=== PATIENT | female | born 1980 | race Caucasian/White ===

== ENCOUNTER 2019-08-29 13:21 | Emergency (ER) | payer OTHER, SELFPAY ==
[2019-08-29 13:28] VITALS: BP 120/80; PULSE 66; RESP 14; TEMP 36.7; O2SAT 98
--- NOTE | 2019-08-29 13:45 | ED.UPPEXIN ---
HPI - Extremity Injury (Upper) General Chief Complaint: Extremity Injury, Upper Stated Complaint: left wrist injury Time Seen by Provider: 08/29/19 13:39 Source: patient and RN notes reviewed Mode of arrival: ambulatory Limitations: no limitations History of Present Illness HPI narrative: Patient presents today complaining of a one-week history of left wrist pain. Denies any injury at time of onset. Last night, she was repositioning herself on her bed and rolled her wrist, causing increased pain. She now has radiating pain to the forearm. Reports some tingling in the fifth finger, but denies numbness. She currently rates her pain 8/10 and has been using ice and marijuana. She also took 1 dose of ibuprofen last night without relief. Pain increases with movement. MD complaint: injury to: left and wrist Related Data Allergies Allergy/AdvReac Type Severity Reaction Status Date / Time No Known Allergies Allergy Verified 08/29/19 13:40 Review of Systems Review of Systems: Narrative: CONSTITUTIONAL: Denies body aches, fever, chills, or sweats. EYES: Denies visual changes, redness, or discharge. ENT: Denies rhinorrhea, congestion, sore throat, or otalgia. CARDIOVASCULAR: Denies chest pain, palpitations, or edema. RESPIRATORY: Denies cough or dyspnea. GASTROINTESTINAL: Denies abdominal pain, nausea, vomiting, or diarrhea. GENITOURINARY: Denies dysuria or hematuria. SKIN: Denies rash, itching, or wounds. MUSCULOSKELETAL: Denies back pain, or myalgia. +left wrist pain NEUROLOGIC: Denies headache, numbness, tingling, or weakness. PSYCH: Denies depression or anxiety. [facility] Social History Social History (Updated 08/29/19 @ 15:07 by Kassandra Oates, [facility], ) Smoking status: Current some day smoker Tobacco type: cigarettes Alcohol intake: never Substance use: current Substance use type: marijuana Exam Narrative: Exam Narrative: GENERAL: Well-appearing, well-nourished, and in mild acute distress. HEAD: Normocephalic, atraumatic. EYES: EOMI. No redness or drainage. Conjunctivae normal. ENT: Mucous membranes pink and moist. NECK: Normal AROM. CHEST: No respiratory distress. EXTREMITIES: Tenderness to dorsum of left wrist. Scant edema dorsally. No ecchymosis or erythema noted. Distal sensation intact, capillary refill normal. Radial pulse normal. Patient has limited AROM due to pain. SKIN: Warm, dry, no rash. Capillary refill normal. Normal skin turgor. NEURO: No focal deficits. Alert and oriented x3. Gait steady. PSYCH: Normal affect. No signs of depression or anxiety. Course Vital Signs Vital signs: Vital Signs Temperature 98.0 F 08/29/19 13:28 Pulse Rate 66 08/29/19 13:28 Respiratory Rate 14 08/29/19 13:28 Blood Pressure 120/80 08/29/19 13:28 Pulse Oximetry 98 08/29/19 13:28 Temperature 98.0 F 08/29/19 13:28 Pulse Rate 66 08/29/19 13:28 Respiratory Rate 14 08/29/19 13:28 Blood Pressure 120/80 08/29/19 13:28 Pulse Oximetry 98 08/29/19 13:28 Reviewed MDM - Extremity Injury (Upper) Differential Diagnosis Differential diagnosis: Likely sprain and strain of wrist and other (Carpal tunnel, tendinitis) Critical Care Time Critical Care Time Critical Care Time: No Discharge Plan Discharge Clinical Impression: Left wrist sprain Qualifiers: Encounter type: initial encounter Qualified Code(s): S63.502A - Unspecified sprain of left wrist, initial encounter Patient Disposition: Home, Self-Care Condition: Stable Instructions: Wrist Sprain (ED) Additional Instructions: You have likely sprained your wrist. Please take the Medrol Dosepak as directed. Continue ibuprofen for pain and inflammation. Wear a Velcro wrist splint for stability at home. Follow-up with your doctor in 1 week if symptoms are not improving. Patient Language: Luxembourgish Prescriptions: New methylprednisolone [Medrol (Brown)] 4 mg tablets,dose pack See Rx Instructions .ROUTE .CO
== END 2019-08-29 13:53 | disposition home or self-care (01) ==
PROVIDERS: Emergency Provider Nurse Practitioner
DX: S63.502A Unspecified sprain of left wrist, initial encounter (principal); X50.9XXA Other and unspecified overexertion or strenuous movements or postures, initial encounter; J44.9 Chronic obstructive pulmonary disease, unspecified
CPT/HCPCS: 99213; G0463

== ENCOUNTER 2019-12-22 14:46 | Emergency (ER) | payer OTHER, SELFPAY ==
[2019-12-22 14:57] VITALS: BP 113/68; PULSE 77; RESP 16; TEMP 36.9; O2SAT 98
--- NOTE | 2019-12-22 15:23 | ED.GENADULT ---
HPI - General Adult General Chief complaint: Ear Stated complaint: dizzy/right ear pain and pressure Time Seen by Provider: 12/22/19 15:23 Source: patient and RN notes reviewed Mode of arrival: ambulatory Limitations: no limitations History of Present Illness HPI narrative: 39-year-old female presents with complaints of dizziness and nausea with head movement, right ear pressure, and ringing in ears that has been going on for the past 6 days. Symptoms increased over the past 48-72 hours. No treatment. Haritha says She went to [employer] 1-2 days prior to symptoms and then ringing in ears started awaken the next day with dizziness which increased daily. Exacerbating factors consist of changing position too fast and turning head from side to side too fast. Relieving factors is sitting still. Denies ear pain, ear itching, ear trauma, trauma to head, syncopal episodes, altered vision, altered speech, confusion, or seizure activity. Denies headache, numbness or tingling in extremities. Denies chest pain or dyspnea. Denies URI symptoms, fever, or chills. Tolerating p.o. intake well. LMP 2004 due to endometrial ablation. Remains active. The patient reports she have not been diagnosed with COVID-19. The patient reports she is not waiting for the results of a COVID-19 lab test. The patient reports she do not have fever, chills, weakness, or fatigue. The patient reports she do not have a new or worsening cough or shortness of breath. Denies chest pain. The patient reports she do not have any rhinorrhea, congestion, sore throat, nausea, vomiting, abdominal pain, and diarrhea. Denies recent traveling. Denies concerns for COVID-19. At this time, patient is not suspected of having COVID-19. Some parts of this dictation were generated by voice recognition software and may contain typographical and/or grammatical inaccuracies. Related Data Home Medications Medication Instructions Recorded Confirmed No Home Medications 12/22/19 12/22/19 Allergies Allergy/AdvReac Type Severity Reaction Status Date / Time No Known Allergies Allergy Verified 12/22/19 15:05 Review of Systems Review of Systems: Narrative: CONSTITUTIONAL: Denies fever, chills, sweats. EYES: Denies visual changes, redness, discharge. ENT: Denies rhinorrhea, congestion, sore throat, otalgia.Complains of ear pressure and tinnitus, CARDIOVASCULAR: Denies chest pain, palpitations, edema. RESPIRATORY: Denies dyspnea, wheezing, cough. GASTROINTESTINAL: Denies abdominal pain, nausea, vomiting, diarrhea. GENITOURINARY: Denies dysuria, hematuria, abnormal discharge. SKIN: Denies lesions, itching, drainage. MUSCULOSKELETAL: Denies acute back pain, joint pain, or myalgia. NEUROLOGIC: Denies numbness or focal weakness. Complains of dizziness. PSYCHIATRIC: Denies anxiety or depression. All systems reviewed & are unremarkable except as noted in HPI and below. [facility] Past Medical History Medical History (Updated 12/23/19 @ 00:00 by Na Sheth) Anxiety Asthma Bipolar disorder delivery delivered X3 COPD (chronic obstructive pulmonary disease) Depression Pituitary tumor Surgical History Surgical History (Updated 12/22/19 @ 15:40 by RUBY Quan) H/O section History of adenoidectomy History of cholecystectomy History of endometrial ablation History of removal of cyst removed from RT knee History of tonsillectomy History of tubal ligation Family History Family History (Updated 12/22/19 @ 15:41 by RUBY Quan) Unknown Adopted (not a blood relative) Social History Social History (Updated 12/22/19 @ 15:42 by RUBY Quan) Smoking status: Current some day smoker Tobacco type: cigarettes Second hand tobacco smoke exposure: No Alcohol intake: never Substance use: current Substance use type: marijuana Living arrangements: with family Occupation/Education: unemployed Gender identity (if ve
[2019-12-22] MEDS: ONDANSETRON HCL ODT 4 MG TABLET PO (15:37)
[2019-12-22] MEDS: MECLIZINE HCL 25 MG TABLET PO (15:38)
[2019-12-22 15:42] VITALS: BP 124/78
[2019-12-22 15:43] VITALS: BP 127/86; BP 148/78; PULSE 72; PULSE 81
== END 2019-12-22 15:53 | disposition home or self-care (01) ==
PROVIDERS: Emergency Provider Nurse Practitioner Family
DX: H81.11 Benign paroxysmal vertigo, right ear (principal); H92.01 Otalgia, right ear; F17.210 Nicotine dependence, cigarettes, uncomplicated; J44.9 Chronic obstructive pulmonary disease, unspecified
CPT/HCPCS: 99213; A9270; G0463

== ENCOUNTER 2019-12-28 12:08 | Emergency (ER) | payer OTHER, SELFPAY ==
--- NOTE | ~2019-12-28 | XR_ITS ---
EXAMINATION: XR cervical spine 4-5V DATE: 12/28/2019 13:03 INDICATION: Neck pain. TECHNIQUE: 5 views of cervical spine were obtained. COMPARISON: None. FINDINGS: There is 7 degrees dextrocurvature of cervical spine. Vertebral body heights and interverte bral disc heights are normal. The facet joints are unremarkable. No central canal stenosis or prevert ebral soft tissue swelling. IMPRESSION: 1. Cervical dextrocurvature. Reviewed, dictated and finalized at location B.
[2019-12-28 12:12] VITALS: BP 123/87; PULSE 81; RESP 16; TEMP 37.1; O2SAT 99
--- NOTE | 2019-12-28 12:25 | ED.GENADULT ---
HPI - General Adult General Chief complaint: Dizziness Stated complaint: dizzy/ear pain and pressure Time Seen by Provider: 12/28/19 12:26 Source: patient and RN notes reviewed Mode of arrival: ambulatory Limitations: no limitations History of Present Illness HPI narrative: 39-year-old female presents with concern for dizziness, room spinning, right ear pain and pressure, sinus pressure, sinus drainage and congestion. Reports she was seen on December 21 and prescribed a Medrol Dosepak, Claritin, meclizine, Flonase, Zofran. Reports she is almost finished with the Medrol Dosepak, has been taking Claritin daily, has taken meclizine with no relief, and took Zofran as needed for nausea. Reports she chronically pops her neck, and is concerned the symptoms may be related to that. She denies any current neck pain, denies weakness or numbness in any extremity. Reports postnasal drainage, sore throat. Reports she feels off , for example she is more forgetful, not keeping to her usual schedule. MD complaint: Dizziness, ear pain Related Data Allergies Allergy/AdvReac Type Severity Reaction Status Date / Time No Known Allergies Allergy Verified 12/28/19 12:24 Review of Systems Review of Systems: Narrative: CONSTITUTIONAL: Denies malaise, chills, sweats, or fever. EYES: Denies visual changes ENT: Reports rhinorrhea, postnasal drainage, bilateral ear pain, worse on the right, sore throat. CARDIOVASCULAR: Denies chest pain, palpitations, or edema. RESPIRATORY: Denies cough or dyspnea. SKIN: Denies rash or itching. MUSCULOSKELETAL: Denies neck pain NEUROLOGIC: Denies numbness, weakness, or headache. Reports dizziness, room spinning PSYCHIATRIC: Denies anxiety or depression. All systems reviewed & are unremarkable except as noted in HPI and below PMFSH Past Medical History Medical History (Updated 12/28/19 @ 13:21 by Kristy Barajas NP) Anxiety Asthma Bipolar disorder delivery delivered X3 COPD (chronic obstructive pulmonary disease) Depression Pituitary tumor Surgical History Surgical History (Updated 12/22/19 @ 15:40 by RUBY Quan) H/O section History of adenoidectomy History of cholecystectomy History of endometrial ablation History of removal of cyst removed from RT knee History of tonsillectomy History of tubal ligation Family History Family History (Updated 12/22/19 @ 15:41 by RUBY Quan) Unknown Adopted (not a blood relative) Social History Social History (Updated 12/22/19 @ 15:42 by RUBY Quan) Smoking status: Current some day smoker Tobacco type: cigarettes Second hand tobacco smoke exposure: No Alcohol intake: never Substance use: current Substance use type: marijuana Gender identity (if verbalized by the patient): Female Comments At time of signature, agree with nursing past medical, surgical, social and family history. There is no relevant family history pertinent to the presenting complaint Exam Narrative: Exam Narrative: GENERAL: Well-appearing, well-nourished, and in no acute distress. HEAD: Normocephalic, atraumatic. EYES: PERRLA, conjunctivae clear, and EOMI. Tony-Hallpike test positive, nystagmus with head turned to the right ENT: Nares clear, turbinates erythematous, edematous. Mucous membranes moist. TM pearly march with sharp light reflex bilaterally; no tragal tenderness. Oropharynx mildly erythema or lesions. Tonsils not present, and without exudate. NECK: Supple. No lymphadenopathy. No tenderness. CHEST: No respiratory distress. Clear to auscultation. No bony deformities, no asymmetry. Speaks in full sentences. HEART: Regular rate and rhythm. No murmur heard. EXTREMITIES: Normal range of motion. No edema. Normal strength and sensation. SKIN: Warm, dry, no rash. NEURO: Alert and oriented x3. No focal deficits. Cranial nerves II through XII grossly intact PSYCH: Normal mood and affect Course Course Emergency Course
== END 2019-12-28 13:15 | disposition home or self-care (01) ==
PROVIDERS: Emergency Provider Nurse Practitioner
DX: H81.10 Benign paroxysmal vertigo, unspecified ear (principal); J01.90 Acute sinusitis, unspecified; F17.210 Nicotine dependence, cigarettes, uncomplicated; J44.9 Chronic obstructive pulmonary disease, unspecified
CPT/HCPCS: 72050; 87081; 87880; 99213; G0463

== ENCOUNTER 2020-04-13 15:35 | Outpatient (CLI) | payer OTHER, SELFPAY ==
--- NOTE | ~2020-04-13 | MR_ITS ---
EXAMINATION: MR brain/brain stem wo/w con DATE: 04/13/2020 16:42 INDICATION: Headache, unspecified. TECHNIQUE: Magnetic resonance imaging (MRI) of the brain and brainstem was performed without and with 12 mL MultiHance intravenous contrast. Sequences included sagittal and axial T1-weighted FSE, axial diffusion-weighted FS EPI, axial T2*-weighted GRE, axial T2-weighted FLAIR Propeller, and axial T2-we ighted Propeller. Postcontrast sequences included axial and coronal T1-weighted FSE. Apparent diffusi on coefficient (ADC) maps were created. COMPARISON: None. FINDINGS: There is no intracranial hemorrhage, acute infarction, or abnormal intracranial mass lesion . The ventricles are normal in size. There is mild mucosal thickening in sphenoid sinus. The mastoid air cells are normal. The orbits are normal. IMPRESSION: 1. Normal brain. Reviewed, dictated and finalized at location A. [employer] IMPRESSION: 1. Normal brain.
[2020-04-17 11:23] LABS: Estimated Glomerular Filt Rate > 60
== END 2020-04-13 15:36 | disposition home or self-care (01) ==
PROVIDERS: PCP Internal Medicine; Visit Provider Clinical Nurse Specialist
DX: R51.9 Headache, unspecified (principal); F51.5 Nightmare disorder; F43.10 Post-traumatic stress disorder, unspecified
CPT/HCPCS: 70553; A9577

== ENCOUNTER 2020-05-09 14:30 | Outpatient (RCR) | payer OTHER, SELFPAY ==
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
--- NOTE | 2020-05-09 15:12 | PCPTNOTE ---
Patient did not show up for scheduled appointment this date. Attempted to call patient and unable to reach or leave a message.
--- NOTE | 2020-05-11 11:42 | PCPTNOTE ---
Attempted to contact patient again regarding no show at her final visit. Still unable to reach patient and unable to leave a message. Plan to D/C PT at this time.
--- NOTE | 2020-05-16 11:28 | PCPTNOTE ---
PHYSICAL THERAPY DISCHARGE SUMMARY Attending Provider: Dre Medina DO Patient:Haritha Boone Date of :1980 Patient has not returned for any further treatments since 05/09/2020, therefore she will be discharged at this time. Patient?s initial visit was on 04/11/2020 12:30 and she had a total of 7 visits. The goals have been partially met. Thank you for referring this patient to [facility]. Please review, sign, date and return this discharge summary STEPHANIE. I have been updated about the patient's current status and I agree with discharge from the above service at this time. Referring Physician Date
== END 2020-05-17 11:18 | disposition home or self-care (01) ==
LOC: ANHPT 14:30
PROVIDERS: PCP Internal Medicine; Visit Provider Internal Medicine
DX: M54.5 Low back pain (principal)
CPT/HCPCS: 97012; 97014; 97110; 97140; 97161; G0283

== ENCOUNTER 2020-07-10 13:50 | Emergency (ER) | payer OTHER, SELFPAY ==
--- NOTE | 2020-07-10 14:01 | ED.DENTAL ---
HPI - Dental/Oral General Chief complaint: Skin/Abscess/Foreign Body Stated complaint: tooth pain and infection on arm Time Seen by Provider: 07/10/20 14:01 Source: patient and RN notes reviewed History of Present Illness HPI Narrative: Patient is a 40-year-old female who presents the urgent care with complaints of right lower dental pain and left arm infection. Patient states that the dental pain has been ongoing for several years and she does have an appointment with her dentist in 2 weeks. However patient states that just the last couple days she broke off more of a lower right tooth and the pain has increased. Patient states she has been taking [id number] pain medication without much relief and now there is some swelling around the tooth. Patient states that 3 days ago she got a large tattoo placed on her left arm and some areas of the tattoo have been oozing and scabbed. Patient states that she is worried it is infected . Patient states she has been cleaning it and putting Neosporin on the area. Denies of any fever, chills, nausea, vomiting. No other acute complaints. No acute distress noted. Patient aware of the plan of care. Some parts of this dictation were generated by voice recognition software and may contain typographical and/or grammatical inaccuracies. Related Data Home Medications Medication Instructions Recorded Confirmed cholecalciferol (vitamin D3) 25 1,000 unit PO DAILY cap 03/23/20 07/10/20 mcg (1,000 unit) capsule trazodone 50 mg tablet 75 mg PO .qhs tablet 03/27/20 07/10/20 fluoxetine 20 mg capsule 40 mg PO DAILY cap 04/17/20 07/10/20 quetiapine 25 mg tablet 5 mg PO .Qhs tablet 04/17/20 07/10/20 Allergies Allergy/AdvReac Type Severity Reaction Status Date / Time No Known Allergies Allergy Verified 07/10/20 14:13 Review of Systems Review of Systems: Narrative: CONSTITUTIONAL: Denies fever, chills, or sweats. EYES: Denies visual changes, redness, or discharge. ENT: Denies rhinorrhea, congestion, sore throat, or otalgia. Reports of lower right dental pain and swelling CARDIOVASCULAR: Denies chest pain, palpitations, or edema. RESPIRATORY: Denies cough or dyspnea. GASTROINTESTINAL: Denies abdominal pain, nausea, vomiting, or diarrhea. GENITOURINARY: Denies dysuria or hematuria. SKIN: Reports of scabbing and oozing from a new tattoo of the left arm MUSCULOSKELETAL: Denies back pain, joint pain, or myalgia. NEUROLOGIC: Denies headache, numbness, or weakness. All other systems reviewed are negative, except as documented in HPI. [facility] Past Medical History Medical History (Updated 07/10/20 @ 14:23 by RUBY Edmondson) Allergies Anxiety Asthma Bipolar disorder delivery delivered X3 COPD (chronic obstructive pulmonary disease) Depression Headache Pituitary tumor Surgical History Surgical History (Updated 03/23/20 @ 10:15 by Shahida Francisco [facility]) H/O section H/O knee surgery 2014 History of adenoidectomy History of cholecystectomy 2016 History of endometrial ablation History of removal of cyst removed from RT knee History of tonsillectomy History of tubal ligation Family History Family History (Updated 12/22/19 @ 15:41 by RUBY Quan) Unknown Adopted (not a blood relative) Social History Social History (Updated 04/06/20 @ 07:57 by Shahida Francisco [facility]) Smoking packs per day: 0.5 Smoking cigarettes per day: 10.0 Smoking status: Current some day smoker Tobacco type: cigarettes Second hand tobacco smoke exposure: No Alcohol intake: never Substance use: current Substance use type: marijuana Gender identity (if verbalized by the patient): Female Comments At the time of my signature, I reviewed and agree with the nursing past medical, surgical, social, and family history. There is no relevant family history pertinent to the patient complaint. Exam Narrative: Exam Narrative: GENERAL: This is a well-nou
[2020-07-10 14:06] VITALS: BP 123/78; PULSE 83; RESP 16; TEMP 36.7; O2SAT 98
[2020-07-10 14:14] VITALS: BP 123/78; PULSE 83; RESP 16; TEMP 36.7; O2SAT 98
== END 2020-07-10 14:25 | disposition home or self-care (01) ==
PROVIDERS: Emergency Provider Nurse Practitioner Family; PCP Internal Medicine
DX: K02.9 Dental caries, unspecified (principal); L81.8 Other specified disorders of pigmentation; F17.210 Nicotine dependence, cigarettes, uncomplicated; F41.9 Anxiety disorder, unspecified; F31.9 Bipolar disorder, unspecified; J44.9 Chronic obstructive pulmonary disease, unspecified
CPT/HCPCS: 99213; G0463

== ENCOUNTER 2020-09-28 11:08 | Outpatient (CLI) | payer OTHER, SELFPAY ==
--- NOTE | ~2020-09-28 | XR_ITS ---
EXAMINATION: XR lumbar spine min 4V DATE: 09/28/2020 11:28 INDICATION: Low back pain TECHNIQUE: Anteroposterior, lateral, and bilateral oblique views of the lumbar spine, and cone-down l ateral view of the lumbosacral junction were obtained. COMPARISON: None. FINDINGS: There are 3 mm of retrolisthesis of L4 on L5. The vertebral body heights are maintained. Th ere is moderate loss of intervertebral disc space height at L4-5 and L5-S1. There is no fracture. Joselin gical clips in the right upper quadrant are likely from prior cholecystectomy. Small degenerative ost eophytes project from the anterior endplates of multiple vertebral bodies. The bowel gas pattern is n ormal. IMPRESSION: 1. Mild lumbar spondylosis without acute findings. Reviewed, dictated and finalized at location B.
== END 2020-09-28 11:09 | disposition home or self-care (01) ==
LOC: ANHIMG 11:13
PROVIDERS: PCP Internal Medicine; Visit Provider Nurse Practitioner
DX: M47.896 Other spondylosis, lumbar region (principal)
CPT/HCPCS: 72110

== ENCOUNTER 2020-10-16 06:40 | Outpatient (CLI) | payer OTHER, SELFPAY ==
--- NOTE | ~2020-10-16 | MR_ITS ---
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 Low back pain, pops and grinds when moving right h ip. TECHNIQUE: Multi-sequential, multiplanar MR images of the lumbar spine were obtained without contrast . Sagittal T1, T2, T2 fat saturation images. Axial T2 weighted images. Correlation is made to lumba r x-ray 09/28/2020. FINDINGS: There is a transitional S1 segment with rudimentary S1-T2 disc, correlating with recent lum bar x-ray. Mild disc disease L5-S1 with tiny annular fissure. The vertebral body and disc heights are otherwise well maintained. The vertebral bodies are aligned in the AP dimension. The conus medullari s terminates at the L1-2 level and has normal signal intensity and morphology. Paraspinal soft tissue is unremarkable. Level by level evaluation: L1-L2: Disc does not extend beyond the endplate margin. Facet arthropathy: Mild. Neural foraminal stenosis: No stenosis. Central canal stenosis: No stenosis. L2-L3: Disc does not extend beyond the endplate margin. Facet arthropathy: Mild. Neural foraminal stenosis: No stenosis. Central canal stenosis: No stenosis. L3-L4: Disc does not extend beyond the endplate margin. Facet arthropathy: Mild. Neural foraminal stenosis: No stenosis. Central canal stenosis: No stenosis. L4-L5: Disc does not extend beyond the endplate margin. Facet arthropathy: Mild. Neural foraminal stenosis: No stenosis. Central canal stenosis: No stenosis. L5-S1: There is a mild diffuse disc bulge. Facet arthropathy: Mild to moderate. Neural foraminal stenosis: No stenosis. Central canal stenosis: No stenosis. S1-2: Rudimentary disc space. Facet arthropathy: Mild. Neural foraminal stenosis: No stenosis. Central canal stenosis: No stenosis. IMPRESSION: 1. Transitional lumbosacral segment designated S1. 2. Mild lumbar spondylosis without stenosis. Reviewed, dictated and finalized at location B.
== END 2020-10-16 06:41 | disposition home or self-care (01) ==
PROVIDERS: PCP Internal Medicine; Visit Provider Clinical Nurse Specialist
DX: M43.06 Spondylolysis, lumbar region (principal); M47.896 Other spondylosis, lumbar region
CPT/HCPCS: 72148; 96372; 99284; A9270; J1885; J3360

== ENCOUNTER 2020-10-16 07:50 | Emergency (ER) | payer OTHER, SELFPAY ==
[2020-10-16 08:00] VITALS: BP 154/102; PULSE 65; RESP 18; TEMP 36.7; O2SAT 98
--- NOTE | 2020-10-16 09:20 | ED.BACK ---
HPI - Back Pain/Injury General Chief Complaint: Back Pain/Injury Stated Complaint: back pain Time Seen by Provider: 10/16/20 09:03 Source: patient Mode of arrival: ambulatory Limitations: no limitations History of Present Illness HPI Narrative: This is a 40-year-old female that presents the emergency department for low back pain ongoing over the last couple of months. No known injury or trauma. Reports she has completed 6 weeks of physical therapy for this without relief. 2 weeks ago she had a twisting injury to the back at work which has again exacerbating her pain. She has been seeing her primary care doctor for this and taking anti-inflammatories for pain. She had an outpatient MRI this morning and then presented to the ED after this for pain. She has not taken anything for pain yet today. Denies fever, saddle anesthesia, bowel/bladder incontinence, or weakness. Related Data Home Medications Medication Instructions Recorded Confirmed cholecalciferol (vitamin D3) 25 1,000 unit PO DAILY cap 03/23/20 09/28/20 mcg (1,000 unit) capsule fluoxetine 20 mg capsule 40 mg PO DAILY cap 04/17/20 09/28/20 quetiapine 25 mg tablet 200 mg PO .Qhs tablet 08/17/20 08/17/20 temazepam 15 mg capsule 30 mg PO QHS cap 08/17/20 09/28/20 Allergies Allergy/AdvReac Type Severity Reaction Status Date / Time No Known Allergies Allergy Verified 10/16/20 08:06 Review of Systems Review of Systems: Narrative: CONSTITUTIONAL: Denies fever SKIN: Denies rash MUSCULOSKELETAL: Reports back pain, joint pain, and myalgia. NEUROLOGIC: Denies numbness, or weakness. PSYCHIATRIC: Reports anxiety and depression. All systems reviewed & are unremarkable except as noted in HPI and below PMFSH Past Medical History Medical History Allergies Anxiety Asthma Bipolar disorder delivery delivered X3 COPD (chronic obstructive pulmonary disease) Depression Headache Pituitary tumor Surgical History Surgical History H/O section H/O knee surgery 2014 History of adenoidectomy History of cholecystectomy 2016 History of endometrial ablation History of removal of cyst removed from RT knee History of tonsillectomy History of tubal ligation Family History Family History Unknown Adopted (not a blood relative) Social History Social History Smoking packs per day: 1 Smoking cigarettes per day: 20.0 Smoking status: Current every day smoker Tobacco type: cigarettes Second hand tobacco smoke exposure: No Alcohol intake: never Substance use: current Substance use type: marijuana Gender identity (if verbalized by the patient): Female Exam Narrative: Exam Narrative: GENERAL: Well-appearing, well-nourished, and in no acute distress. HEAD: Normocephalic, atraumatic. EYES: EOMI. CHEST: Clear to auscultation. No respiratory distress. No wheezes rales or rhonchi HEART: Regular rate and rhythm. No murmur heard. Normal peripheral pulses. ABDOMEN: No CVA tenderness BACK: No midline spinal tenderness EXTREMITIES: Normal range of motion. No edema. Strength equal in bilateral lower extremities (5/5). Normal DP pulses SKIN: Warm, dry, no rash. NEURO: No focal deficits. Alert and oriented x3. Normal patellar reflexes bilaterally PSYCH: Normal mood and affect Course Vital Signs Vital signs: Vital Signs Temperature 98.1 F 10/16/20 08:00 Pulse Rate 65 10/16/20 08:00 Respiratory Rate 18 10/16/20 08:00 Blood Pressure 154/102 H 10/16/20 08:00 Pulse Oximetry 98 10/16/20 08:00 Temperature 98.1 F 10/16/20 08:00 Pulse Rate 69 10/16/20 10:17 Respiratory Rate 14 10/16/20 10:17 Blood Pressure 133/88 10/16/20 10:17 Pulse Oximetry 98 10/16/20 10:17 MDM - Back Pain/Injur
[2020-10-16] MEDS: KETOROLAC (*BKC) 60 MG/2 ML VIAL IM (09:43)
[2020-10-16] MEDS: diazePAM INJ (*CRX) 10 MG/2 ML SYRINGE 5 MG IM (09:44)
[2020-10-16] MEDS: ACETAMINOPHEN 500 MG TABLET 1000 MG PO (09:44)
[2020-10-16 10:17] VITALS: BP 133/88; PULSE 69; RESP 14; O2SAT 98
== END 2020-10-16 10:46 | disposition home or self-care (01) ==
PROVIDERS: Emergency Provider Emergency Medicine; PCP Internal Medicine
DX: J44.9 Chronic obstructive pulmonary disease, unspecified (principal); F41.9 Anxiety disorder, unspecified; F31.9 Bipolar disorder, unspecified; F17.210 Nicotine dependence, cigarettes, uncomplicated
CPT/HCPCS: 96372; 99284; A9270; J1885; J3360

== ENCOUNTER 2020-11-14 16:32 | Emergency (ER) | payer OTHER, SELFPAY ==
--- NOTE | 2020-11-14 16:36 | ED.SKABFB ---
HPI - Skin/Abscess/Foreign Bdy General Chief complaint: Skin/Abscess/Foreign Body Stated complaint: flea bites Time Seen by Provider: 11/14/20 16:36 Source: patient and RN notes reviewed History of Present Illness HPI narrative: Patient is a 40-year-old female who presents the urgent care with complaints of flea bites to her right arm. Patient states that her back story includes being adopted at a few months old and having a chronic flea bites and therefore developing severe reaction . 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 Patient states that she has been using a steroid topical cream without any improvement. States that she has been washing them in the shower and wiping them dry of the infection with a dry cloth . Patient states that a few of them have just gotten much deeper and itch extremely bad. Patient denies of any fever, chills, nausea, vomiting. No other acute complaints. No acute distress noted. Patient aware of the plan of care. Some parts of this dictation were generated by voice recognition software and may contain typographical and/or grammatical inaccuracies. Related Data Home Medications Medication Instructions Recorded Confirmed cholecalciferol (vitamin D3) 25 1,000 unit PO DAILY cap 03/23/20 11/14/20 mcg (1,000 unit) capsule fluoxetine 20 mg capsule 40 mg PO DAILY cap 04/17/20 11/14/20 quetiapine 25 mg tablet 200 mg PO .Qhs tablet 08/17/20 11/14/20 temazepam 15 mg capsule 30 mg PO QHS cap 08/17/20 11/14/20 cyclobenzaprine mg 11/14/20 diazepam 11/14/20 sumatriptan succinate mg PO 11/14/20 temazepam mg 11/14/20 Allergies Allergy/AdvReac Type Severity Reaction Status Date / Time No Known Allergies Allergy Verified 11/14/20 16:36 Review of Systems Review of Systems: Narrative: CONSTITUTIONAL: Denies fever, chills, or sweats. EYES: Denies visual changes, redness, or discharge. ENT: Denies rhinorrhea, congestion, sore throat, or otalgia. CARDIOVASCULAR: Denies chest pain, palpitations, or edema. RESPIRATORY: Denies cough or dyspnea. GASTROINTESTINAL: Denies abdominal pain, nausea, vomiting, or diarrhea. GENITOURINARY: Denies dysuria or hematuria. SKIN: Reports of flea bites to the right arm MUSCULOSKELETAL: Denies back pain, joint pain, or myalgia. NEUROLOGIC: Denies headache, numbness, or weakness. All other systems reviewed are negative, except as documented in HPI. [facility] Past Medical History Medical History Allergies Anxiety Asthma Bipolar disorder delivery delivered X3 COPD (chronic obstructive pulmonary disease) Depression Headache Pituitary tumor Surgical History Surgical History H/O section H/O knee surgery 2014 History of adenoidectomy History of cholecystectomy 2016 History of endometrial ablation History of removal of cyst removed from RT knee History of tonsillectomy History of tubal ligation Family History Family History Unknown Adopted (not a blood relative) Social History Social History Smoking packs per day: 1 Smoking cigarettes per day: 20.0 Smoking status: Current every day smoker Tobacco type: cigarettes Second hand tobacco smoke exposure: No Alcohol intake: never Substance use: current Substance use type: marijuana Gender identity (if verbalized by the patient): Female Comments At the time of my signature, I reviewed and agree with the nursing past medical, surgical, social, and family history. There is no relevant family history pertinent to the patient complaint. Exam Narrative: Exam Narrative: GENERAL: This is a well-nourished, well-developed patient, in
[2020-11-14 16:37] VITALS: BP 116/84; PULSE 100; RESP 18; TEMP 36.9; O2SAT 100
== END 2020-11-14 16:55 | disposition home or self-care (01) ==
PROVIDERS: Emergency Provider Nurse Practitioner Family; PCP Internal Medicine
DX: S51.801A Unspecified open wound of right forearm, initial encounter (principal); S61.001A Unspecified open wound of right thumb without damage to nail, initial encounter; S91.301A Unspecified open wound, right foot, initial encounter; X58.XXXA Exposure to other specified factors, initial encounter; F41.9 Anxiety disorder, unspecified; F31.9 Bipolar disorder, unspecified; J44.9 Chronic obstructive pulmonary disease, unspecified; F17.210 Nicotine dependence, cigarettes, uncomplicated
CPT/HCPCS: 99213; G0463

== ENCOUNTER 2021-01-29 16:59 | Outpatient (CLI) | payer OTHER, SELFPAY ==
--- NOTE | ~2021-01-29 | MR_ITS ---
EXAMINATION: MR thoracic spine wo con EXAM DATE: 01/29/2021 17:52 INDICATION: Thoracic pain. TECHNIQUE: Multi-sequential, multiplanar MR images of the thoracic spine were obtained without contra st. Sagittal T1, T2, T2 fat saturation, axial T2 weighted images reviewed. There is no prior study for comparison. FINDINGS: There is perceptible mid thoracic central canal, diameter measuring 1.5 mm maximally. This is posterior to the T7 vertebral body, and is probably incidental and not a clinically significant fi nding. The spinal cord signal intensity and intrinsic morphology is normal. No central canal or neur al foraminal stenosis along the thoracic spine. There is mild mid thoracic and lower thoracic disc di sease. The vertebral body heights are maintained. Paraspinal soft tissue is unremarkable. There is decreased T1 and T2 signal intensity within the T5 vertebral body and left pedicle, differen tial diagnosis including atypical hemangioma and sclerotic lesion. No other focal marrow signal abnor malities, and none were identified on a lumbar MRI in October. IMPRESSION: 1. Mild thoracic spondylosis. 2. Incidental T5 signal abnormality, differential diagnosis including atypical hemangioma, sclerotic lesion (bone island or possibly osteoblastic disease). Correlate with any known history of primary m alignancy. Consider follow-up bone scan or noncontrast thoracic CT. 3. Perceptible mid thoracic central canal not likely clinically significant. Reviewed, dictated and finalized at location A. IMPRESSION: 1. Mild thoracic spondylosis. 2. Incidental T5 signal abnormality, differential diagnosis including atypical hemangioma, sclerotic lesion (bone island or possibly osteoblastic disease). C orrelate with any known history of primary malignancy. Consider follow-up bone scan or noncontrast thoracic CT. 3. Perceptible mid thoracic central canal not likely clinically significant.
== END 2021-01-29 17:00 | disposition home or self-care (01) ==
LOC: ANHIMG 17:05
PROVIDERS: PCP Internal Medicine; Visit Provider Nurse Practitioner Family
DX: M54.6 Pain in thoracic spine (principal); M47.814 Spondylosis without myelopathy or radiculopathy, thoracic region; M89.9 Disorder of bone, unspecified
CPT/HCPCS: 72146

== ENCOUNTER 2021-02-22 13:34 | Outpatient (CLI) | payer OTHER, SELFPAY ==
--- NOTE | ~2021-02-22 | CT_ITS ---
EXAMINATION: CT thoracic spine wo con EXAM DATE: 02/22/2021 13:57 INDICATION: Upper back pain. TECHNIQUE: Spiral CT thoracic spine was performed without contrast. Axial, coronal and sagittal im ages were reviewed. The dose-length product (DLP) for this examination was 373.12 mGy-cm. The expos ure was tailored according to patient size (auto mA exposure control), and iterative reconstruction ( ASIR) was used as additional dose reduction technique. Correlation is made to thoracic MRI 01/29/2021. FINDINGS: There is vague region of sclerosis in the left posterior aspect of the T5 vertebral body ex tending into the pedicle measuring about 1.4 cm. There is no increased trabeculation to specifically suggest this is a hemangioma. This correlates to the abnormality identified on MRI. No other bone density abnormalities. There is mild thoracic disc disease and facet arthropathy. Flavio amol soft tissue is unremarkable. The vertebral bodies are aligned in the AP dimension. Cholecystect sadie clips. IMPRESSION: 1. Vague nonspecific T5 sclerotic region without any additional specificity added by this modality. 2. Recommend bone scan and checking PSA level. If these are both negative then consider a 6-12 month follow-up CT or MRI without contrast. Reviewed, dictated and finalized at location B. IMPRESSION: 1. Vague nonspecific T5 sclerotic region without any additional specificity ad ded by this modality. 2. Recommend bone scan and checking PSA level. If these are both negative then consider a 6-12 month follow-up CT or MRI without contrast.
== END 2021-02-22 13:35 | disposition home or self-care (01) ==
LOC: ANHIMG 13:40
PROVIDERS: PCP Internal Medicine; Visit Provider Nurse Practitioner Family
DX: M54.6 Pain in thoracic spine (principal)
CPT/HCPCS: 72128

== ENCOUNTER 2021-03-08 10:39 | Outpatient (CLI) | payer OTHER, SELFPAY ==
--- NOTE | ~2021-03-08 | NM_ITS ---
EXAMINATION: NM bone scan whole body DATE: 03/08/2021 14:50 INDICATION: Abnormal findings on MRI and CT . TECHNIQUE: 22.8 mCi Tc-99m HDP was administered intravenously. Delayed whole-body scintigrams were o btained. COMPARISON: CT dated 02/22/2021 and MRI dated 01/29/2021 FINDINGS: Physiologic distribution of bone and soft tissue uptake. No abnormal hyperintense are photopenic lesi ons identified. Specifically no correlate identified for the likely benign sclerotic lesion at the le ft side of the T5 vertebral body. IMPRESSION: 1. Normal bone scan. No abnormal uptake at the site of the previously noted sclerotic lesion at T5 jacobson ggesting a chronic benign etiology. Reviewed, dictated and finalized at location A. IMPRESSION: 1. Normal bone scan. No abnormal uptake at the site of the previously noted scl erotic lesion at T5 suggesting a chronic benign etiology.
== END 2021-03-08 10:40 | disposition home or self-care (01) ==
PROVIDERS: PCP Internal Medicine; Visit Provider Nurse Practitioner Family
DX: R93.7 Abnormal findings on diagnostic imaging of other parts of musculoskeletal system (principal)
CPT/HCPCS: 78306; A9561

== ENCOUNTER 2022-07-13 18:09 | Emergency (ER) | payer OTHER, SELFPAY ==
[2022-07-13 18:16] VITALS: BP 130/76; PULSE 90; RESP 16; TEMP 36.6; O2SAT 100
--- NOTE | 2022-07-13 18:35 | ED.GENADULT ---
HPI - General Adult General Chief complaint: Eye Problems Stated complaint: Right eye area Source: patient Mode of arrival: ambulatory Limitations: no limitations History of Present Illness HPI narrative: PATIENT PRESENTS FOR EVALUATION OF A PAINFUL LESION TO HER RIGHT EYEBROW SINCE YESTERDAY. SHE INDICATES SHE THOUGHT SHE HAD AN INGROWN HAIR. SHE DOES ADMIT TO PLUCKING HER EYEBROWS. REPORTS SWELLING IN THE AFFECTED AREA AND NOW. SHE IS A SMALL AMOUNT OF DRIED SANGUINOUS DRAINAGE IN THE AREA. DENIES ANY PURULENCE. DENIES ANY FEVER, CHILLS, NAUSEA, VOMITING. SHE IS NOT DIABETIC. NO VISUAL DISTURBANCE. DENIES ILLICIT DRUG USE. NO ADDITIONAL COMPLAINTS OR CONCERNS. Related Data Allergies Allergy/AdvReac Type Severity Reaction Status Date / Time lisinopril Allergy Headache, Verified 08/19/21 21:13 inability to think Review of Systems Review of Systems: CONSTITUTIONAL: DENIES FEVER, CHILLS, OR SWEATS. EYES: DENIES VISUAL CHANGES, REDNESS, OR DISCHARGE. ENT: DENIES RHINORRHEA, CONGESTION, SORE THROAT, OR OTALGIA. CARDIOVASCULAR: DENIES CHEST PAIN, PALPITATIONS, OR EDEMA. RESPIRATORY: DENIES COUGH OR DYSPNEA. GASTROINTESTINAL: DENIES ABDOMINAL PAIN, NAUSEA, VOMITING, OR DIARRHEA. GENITOURINARY: DENIES DYSURIA OR HEMATURIA. SKIN: REPORTS PAINFUL SWOLLEN LESION TO RIGHT EYEBROW MUSCULOSKELETAL: DENIES BACK PAIN, JOINT PAIN, OR MYALGIA. NEUROLOGIC: DENIES HEADACHE, NUMBNESS, DIZZINESS, OR WEAKNESS. PSYCHIATRIC: DENIES ANXIETY OR DEPRESSION. [facility] Past Medical History Medical History Allergies Anxiety Asthma Bipolar disorder delivery delivered X3 COPD (chronic obstructive pulmonary disease) Depression Headache Pituitary tumor Surgical History Surgical History H/O section H/O knee surgery 2014 History of adenoidectomy History of cholecystectomy 2016 History of endometrial ablation History of removal of cyst removed from RT knee History of tonsillectomy History of tubal ligation Family History Family History Unknown Adopted (not a blood relative) Social History Social History Smoking packs per day: 0.25 Smoking cigarettes per day: 5.0 Smoking status: Current every day smoker Tobacco type: cigarettes Second hand tobacco smoke exposure: No Alcohol intake: never Substance use: current Substance use type: marijuana Living arrangements: with family Occupation/Education: unemployed Gender identity (if verbalized by the patient): Female Sexual Orientation (if Verbalized by the Patient): Straight or Heterosexual Exam Narrative: GENERAL: WELL-APPEARING, WELL-NOURISHED, AND IN NO ACUTE DISTRESS. HEAD: NORMOCEPHALIC, ATRAUMATIC. EYES: PERRLA AND EOMI. ENT: NARES CLEAR, NO RHINORRHEA OR EPISTAXIS. MUCOUS MEMBRANES MOIST. OROPHARYNX WITHOUT TONSILLAR HYPERTROPHY EXUDATE OR OTHER LESIONS. BILATERAL TMS PEARLY HUTCHINS NONBULGING NECK: SUPPLE. NO ADENOPATHY OR MASSES. NO CAROTID BRUITS OR JVD CHEST: CLEAR TO AUSCULTATION. NO RESPIRATORY DISTRESS. NO WHEEZES RALES OR RHONCHI HEART: REGULAR RATE AND RHYTHM. NO MURMUR HEARD. NORMAL PERIPHERAL PULSES. ABDOMEN: SOFT, NONTENDER, NONDISTENDED, NORMAL ACTIVE BOWEL SOUNDS. EXTREMITIES: NORMAL RANGE OF MOTION. NO EDEMA. SKIN: THERE IS AN APPROXIMATELY 2 CM RAISED AREA OF ERYTHEMA WITH UNDERLYING INDURATION TO THE RIGHT EYEBROW WITH 2 MM AREA OF DRIED SANGUINOUS DRAINAGE PRESENT NEURO: NO FOCAL DEFICITS. ALERT AND ORIENTED X3. PSYCH: NORMAL MOOD AND AFFECT. Course Course Emergency Course: THIS IS A 42-YEAR-OLD FEMALE WHO PRESENTED FOR EVALUATION OF A PAINFUL SWOLLEN LESION TO THE RIGHT EYEBROW. ON EXAM AREA IS INDURATED WITHOUT UNDERLYING FLUCTUANCE. I DO NOT APPRECIATE A DRAINABLE F
== END 2022-07-13 18:28 | disposition home or self-care (01) ==
PROVIDERS: Emergency Provider Nurse Practitioner; PCP Emergency Medicine
DX: L73.9 Follicular disorder, unspecified (principal); F17.210 Nicotine dependence, cigarettes, uncomplicated
CPT/HCPCS: 99213; G0463

== ENCOUNTER 2024-01-05 09:36 | Emergency (ER) | payer OTHER, SELFPAY ==
[2024-01-05 09:44] VITALS: BP 129/84; PULSE 73; RESP 20; TEMP 36.5; O2SAT 100
--- NOTE | 2024-01-05 10:20 | ED.EYEPROB ---
HPI - Eye Problem General Chief complaint: Eye Problems Stated complaint: Right eye Time Seen by Provider: 01/05/24 10:20 Source: patient, RN notes reviewed and old records reviewed Mode of arrival: ambulatory Limitations: no limitations History of Present Illness HPI Narrative: 43-year-old female presents to the [facility] with complaints of right eye redness, irritation and discharge for 3 days. Treatment prior to arrival. Denies any injury. Does not wear contacts or glasses Onset (ago): day(s) (3) Treatments Prior to Arrival: none Related Data Allergies Allergy/AdvReac Type Severity Reaction Status Date / Time lisinopril Allergy Headache, Verified 01/05/24 10:07 inability to think Review of Systems Review of Systems: All systems reviewed & are unremarkable except as noted in HPI and below Constitutional: Constitutional: Reports no additional constitutional complaints Eyes: Eyes: Reports as per HPI ENT: Reports system reviewed and no additional complaints, except as documented Cardiovascular: Cardiovascular: Reports no additional cardiovascular complaints, Denies chest pain and Denies dyspnea Respiratory: Respiratory: Reports no additional respiratory complaints, Denies chest congestion, Denies cough and Denies dyspnea Gastrointestinal: Gastrointestinal: Reports no additional gastrointestinal complaints, Denies abdominal pain, Denies nausea and Denies vomiting Musculoskeletal: Musculoskeletal: Reports no additional musculoskeletal complaints Integumentary/Breasts: Skin/Breast: Reports system reviewed and no additional complaints, except as docu Neurologic: Reports system reviewed and no additional complaints, except as documented Psychiatric: Psychiatric: Reports no additional psychiatric complaints Allergic/Immunologic: Allergic/Immunologic: Reports no additional allergic/immunologic complaints PMFSH Past Medical History Medical History Allergies Anxiety Asthma Bipolar disorder delivery delivered X3 COPD (chronic obstructive pulmonary disease) Depression Headache Pituitary tumor Surgical History Surgical History H/O section H/O knee surgery 2014 History of adenoidectomy History of cholecystectomy 2016 History of endometrial ablation History of removal of cyst removed from RT knee History of tonsillectomy History of tubal ligation Family History Family History Unknown Adopted (not a blood relative) Social History Social History Smoking packs per day: 0.25 Smoking cigarettes per day: 5.0 Smoking status: Current every day smoker Tobacco type: cigarettes Second hand tobacco smoke exposure: No Alcohol intake: never Substance use: current Substance use type: marijuana Living arrangements: with family Occupation/Education: unemployed Gender identity (if verbalized by the patient): Female Sexual Orientation (if Verbalized by the Patient): Straight or Heterosexual Comments At the time of my signature, I reviewed and agree with the nursing past medical, surgical, social, and family history. There is no relevant family history pertinent to the patient complaint. Exam Const: General: cooperative, healthy appearing, comfortable, no acute distress, well developed, alert and well nourished Nutritional Appearance: well nourished Orientation/consciousness: patient oriented x3 Limitations: no limitations HENMT: Head: normal to inspection Ears: hearing grossly normal bilaterally, external ears normal, TM's normal bilaterally, EAC's normal, mastoids normal and no periauricular adenopathy Face/Nose/Sinus: Normal external nose present, Normal nares present, Normal nasal mucous membranes and turbinates present, normal facial exam and
== END 2024-01-05 10:30 | disposition home or self-care (01) ==
PROVIDERS: Emergency Provider Nurse Practitioner
DX: H10.31 Unspecified acute conjunctivitis, right eye (principal); F17.210 Nicotine dependence, cigarettes, uncomplicated; J44.9 Chronic obstructive pulmonary disease, unspecified
CPT/HCPCS: 99213; G0463